=== PATIENT | male | born 1970 | race Caucasian/White ===

== ENCOUNTER 2020-11-24 08:36 | Emergency (ER) | payer BC ==
[2020-11-24] MEDS ORDERED: Bupivacaine 0.5% 10 ML SDV INJECT ONE (09:25)
[2020-11-24] MEDS ORDERED: Triamcinolone Acetonide 40 MG/ML 1 ML SDV INJECT ONE (09:25)
--- NOTE | 2020-11-24 09:31 | EDM.PDOC ---
ED HPI GENERAL MEDICAL PROBLEM - General Chief Complaint: Lower Extremity Injury/Pain Stated Complaint: L KNEE PAIN Time Seen by Provider: 11/24/20 09:25 Source of Information: Reports: Patient History Limitations: Reports: No Limitations - History of Present Illness INITIAL COMMENTS - FREE TEXT/NARRATIVE: 50-year-old male presents to the ED with confirmed osteoarthritic changes in his left knee by x-rays at [facility] last week. He has had previous injury to his right lower extremity and right total knee replacement about 6 years ago. Reportedly this knee is not quite bad now for total knee replacement. He is having a lot more pain in his knee particular medial aspect over the last several weeks. 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 He came to the ED seeking steroid injection into his left knee. Onset: Other (Chronic problems with right knee but worse recently.) Duration: Chronic, Getting Worse Location: Reports: Lower Extremity, Left Quality: Reports: Ache, Throbbing Severity: Moderate Improves with: Reports: Rest Worsens with: Reports: Other Context: Reports: Other (Osteoarthritic changes left knee.). 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 0430 Left Knee Pain Score (Numeric/FACES): 9 - Related Data Allergies Allergy/AdvReac Type Severity Reaction Status Date / Time No Known Allergies Allergy Verified 11/24/20 08:56 Home Meds: Home Meds Aspirin 81 mg PO DAILY 11/24/20 [History] Ezetimibe [Zetia] 10 mg PO DAILY 11/24/20 [History] Past Medical History HEENT History: Reports: Impaired Vision Cardiovascular History: Reports: High Cholesterol Respiratory History: Reports: None Gastrointestinal History: Reports: None Genitourinary History: Reports: None Musculoskeletal History: Reports: Other (See Below) Other Musculoskeletal History: right bicep re attached and right leg fasciotomy Neurological History: Reports: None Psychiatric History: Reports: None Endocrine/Metabolic History: Reports: None Hematologic History: Reports: None Immunologic History: Reports: Other (See Below) Other Immunologic History: Hep C carrier Oncologic (Cancer) History: Reports: None Dermatologic History: Reports: None - Infectious Disease History Infectious Disease History: Reports: Chicken Pox - Past Surgical History Head Surgeries/Procedures: Reports: None HEENT Surgical History: Reports: Adenoidectomy, Oral Surgery, Tonsillectomy Musculoskeletal Surgical History: Reports: Knee Replacement Dermatological Surgical History: Reports: None Social & Family History - Family History Family Medical History: No Pertinent Family History - Tobacco Use Tobacco Use Status *Q: Never Tobacco User - Caffeine Use Caffeine Use: Reports: Coffee - Recreational Drug Use Recreational Drug Use: Yes Drug Use in Last 12 Months: No Recreational Drug Type: Reports: Cocaine, Heroin, Marijuana/Hashish, Methamphetamine - Living Situation & Occupation Living situation: Reports: Single Occupation: Employed Review of Systems - Review of Systems Review Of Systems: See Below Constitutional: Reports: No Symptoms Eyes: Reports: Glasses Ears: Reports: No Symptoms Nose: Reports: No Symptoms Mouth/Throat: Reports: No Symptoms Respiratory: Reports: No Symptoms Cardiovascular: Reports: No Symptoms, Other (Has elevated triglycerides.) GI/Abdominal: Reports: No Symptoms Genitourinary: Reports: Other (Nocturia x1 or 2.) Musculoskeletal: Reports: Joint Pain (Left knee and left shoulder primarily.) Skin: Reports: No Symptoms Neurological: Reports: Paresthesia (Right lower extremity post major injury several years ago.) Psychiatric: Reports: No Symptoms ED EXAM, GENERAL - Physical Exam Exam: See Below Exam Limited By: No Limitations General Appearance: Alert, WD/WN, No Apparent Distress, Other (Temperature is 36.4 degrees. Heart rate 67 and sinus respiratory is 18 with O2 sats of 98% room air. BP 05/18/1986.) Eye Exam: Bilateral Eye: Normal Inspection (No blepharal pallor no scleral icterus.), PERRL Respiratory/Chest: No Respiratory Distress, Lungs Clear, Normal Breath Sounds, No Accessory Muscle Use Cardiovascular: Normal Peripheral Pulses, Regular Rate, Rhythm, No Edema, No Gallop, No Murmur, No Rub Peripheral Pulses: 1+: Posterior Tibial (L), Posterior Tibial (R), Dorsalis Pedis (L), Dorsalis Pedis (R) Extremities: No Pedal Edema, Other (Examination of his right lower extremity shows major trauma with skin grafting loss of musculature below the knee. He has had a total knee replacement with good range of motion. On the left side does show a very minimal effusion. Pain along the medial joint line primarily. No crepitus on flexion) Neurological: Alert, Oriented, CN II-XII Intact, Normal Cognition Psychiatric: Normal Affect, Normal Mood Skin Exam: Warm, Dry, Intact, Normal Color, No Rash ED JOINT ASPIRATION PROCEDURE - Joint Apsiration/Arthrocentesis Site: Left anterior lateral knee Skin prep: Chlorhexidine (Hibiciens) Local Anesthesia - Bupivicaine (Marcaine): 0.5% Plain Local Anesthetic Volume: 4cc Aspiration needle size: other (23-gauge) Aspirate appearance: other (No fluid aspirated.) Joint injection: marcaine, amount: (Four mils), other and amount: (Kenalog 80 mg) Dressing: adhesive dressing Complications: No Course - Vital Signs Last Recorded V/S: Last Vital Signs Temp 36.4 C 11/24/20 09:00 Pulse 67 11/24/20 09:00 Resp 18 11/24/20 09:00 BP 125/87 11/24/20 09:00 Pulse Ox 98 11/24/20 09:00 - Orders/Labs/Meds Meds: Medications Discontinued Medications Generic Name Dose Route Start Last Admin Trade Name Josh PRN Reason Stop Dose Admin Bupivacaine HCl 10 ml 11/24/20 09:25 11/24/20 09:42 Bupivacaine 0.5% 10 Ml Sdv INJECT 11/24/20 09:26 10 ml ONETIME ONE Administration Triamcinolone Acetonide 80 mg 11/24/20 09:25 11/24/20 09:42 Triamcinolone Acetonide 40 Mg/Ml 1 Ml Sdv INJECT 11/24/20 09:26 80 mg ONETIME ONE Administration - Radiology Interpretation Free Text/Narrative:: 50-year-old male presents to the ED with left knee pain. Confirmed osteoarthritic changes by x-ray done at [facility] a week ago with Dr. Mera has been having a lot more pain in his left knee recently. Plan injection left knee with local anesthetic and Kenalog 80 mg. - Re-Assessments/Exams Free Text/Narrative Re-Assessment/Exam: 11/24/20 10:11 left knee injected with 80 mg of Kenalog under local anesthetic using bupivacaine 0.5% from a lateral anterior approach. Patient tolerated the procedure very well. No complications identified. He will follow up with his primary care provider as needed. Departure - Departure Time of Disposition: 10:08 Disposition: Home, Self-Care 01 Condition: Fair Clinical Impression: Left anterior knee pain Osteoarthritis of left knee Qualifiers: Osteoarthritis type: primary Qualified Code(s): M17.12 - Unilateral primary osteoarthritis, left knee - Discharge Information *PRESCRIPTION DRUG MONITORING PROGRAM REVIEWED*: Not Applicable *COPY OF PRESCRIPTION DRUG MONITORING REPORT IN PATIENT CHAD: Not Applicable Instructions: Osteoarthritis, What You Need to Know About Osteoarthritis Referrals: Elpidio Mera MD [Primary Care Provider] - Forms: ED Department Discharge Additional Instructions: Evaluation in the emergency room today in regards to worsening pain left knee. X-rays done at the [facility] last week confirmed osteoarthritic changes in the knee but not bad enough to need a knee replacement. As you indicated you have been experiencing increased pain in the left knee off and on particularly bad this last few weeks. Examination does reveal a mild amount of fluid within the knee which we call an effusion. The knee was injected from the lateral anterior approach with four mils of bupivacaine local anesthetic and then 80 mg of steroid called Kenalog to reduce inflammation and pain in the left knee over the next couple of days. No pain usually worsens in the first 24 hours after an injection and you may need Motrin or Aleve fairly regularly for the next 24 to 36 hours and then condition should improve as the steroid reduces the inflammation inside the knee. Follow-up with personal care provider if any further problems occur. And it was placed over the puncture wound in the ED. This may be removed tomorrow morning. Sepsis Event Note (ED) - Evaluation Sepsis Screening Result: No Definite Risk - Focused Exam Vital Signs: Vital Signs Temp Pulse Resp BP Pulse Ox 11/24/20 09:00 36.4 C 67 18 125/87 98
== END 2020-11-24 10:25 | disposition home or self-care (01) ==
LOC: JD.ED 08:36
DX: M17.12 Unilateral primary osteoarthritis, left knee (principal); Z79.82 Long term (current) use of aspirin
CPT/HCPCS: 20610; 99283; J3301; J3490